=== PATIENT | female | born 1995 | race Two or more races ===

== ENCOUNTER 2020-06-20 21:20 | Emergency (ER) | payer OTHER ==
[~2020-06-20] VITALS: Ht 165.1 cm; Wt 94.0 kg
[2020-06-20] MEDS ORDERED: ACETAMINOPHEN 325MG TABLET PO STA (22:00)
[2020-06-20 22:23] LABS: CLARITY URINE CLEAR (CLEAR); COLOR URINE YELLOW (YELLOW); KETONES URINE TRACE (NEGATIVE); LEUKOCYTE ESTERASE URINE NEGATIVE (NEGATIVE); NITRITE URINE NEGATIVE (NEGATIVE); OCCULT BLOOD URINE 3+ (NEGATIVE); PROTEIN URINE NEGATIVE (NEGATIVE); SPECIFIC GRAVITY URINE 1.026 (1.005-1.030); UROBILINOGEN URINE 0.2 E.U./dL (0.2-1.0)
[2020-06-20 22:56] LABS: BASOPHILS % 0.7 % (0.0-2.0); HEMATOCRIT. 38.5 % (36.0-48.0); HEMOGLOBIN. 12.8 g/dL (12.0-16.0); LYMPHOCYTES % 35.2 % (20.0-50.0); MEAN CORPUSCULAR HEMOGLOBIN 28.2 pg (28.0-32.0); MEAN CORPUSCULAR VOLUME 84.7 fL (81.0-99.0); MEAN PLATELET VOLUME 7.9 fl (7.4-10.4); MONOCYTES % 10.1 % (2.0-8.0); PLATELET 274 x1000/uL (130-400); RED BLOOD CELL COUNT 4.54 mill/uL (4.2-5.4); RED CELL DISTRIBUTION WIDTH 14.6 % (11.6-14.6)
[2020-06-20 23:03] LABS: CHLORIDE 107 mEq/L (98-107)
[2020-06-20 23:15] LABS: B-HCG QUANTITATIVE < 1 mIU/mL (<3)
[2020-06-21] MEDS ORDERED: IBUP-2029 MT (00:35)
[2020-06-21 00:42] VITALS: BP 122/84
== END 2020-06-21 00:55 | disposition home or self-care (01) ==
LOC: ER 21:20
DX: N93.8 Other specified abnormal uterine and vaginal bleeding (principal); N83.202 Unspecified ovarian cyst, left side; N88.8 Other specified noninflammatory disorders of cervix uteri; J45.909 Unspecified asthma, uncomplicated; Z98.890 Other specified postprocedural states
CPT/HCPCS: 36415; 76830; 76856; 80053; 81003; 81025; 84702; 85025; 86850; 86900; 93005; 99285